=== PATIENT | male | born 1945 | race Caucasian/White ===

== ENCOUNTER 2019-04-18 02:57 | Inpatient (IN) | payer OTHER, BC ==
[~2019-04-18] VITALS: Ht 177.8 cm; Wt 124.7 kg
[2019-04-18 03:08] VITALS: Ht 177.8 cm; Wt 124.7 kg
[2019-04-18 03:56] LABS: PLATELET COUNT 146 x10^3mcL (130-400)
[2019-04-18 03:57] LABS: BASOPHIL % 0 % (0-2); RED CELL DISTRIBUTION WIDTH 15.5 % (11.5-14.5)
[2019-04-18 03:58] LABS: ALKALINE PHOSPHATASE 125 U/L (46-116); ALT/SGPT 59 U/L (16-63); AST/SGOT 36 U/L (15-37); BILIRUBIN TOTAL 1.38 mg/dL (0.20-1.00); CHLORIDE SERUM 101 mmol/L (98-107); CHOLESTEROL 148 mg/dL (<200); GLUCOSE SERUM 443 mg/dL (74-106); POTASSIUM SERUM 3.2 mmol/L (3.5-5.1); SODIUM SERUM 135 mmol/L (136-145)
[2019-04-18 04:01] LABS: ALBUMIN 3.1 g/dL (3.4-5.0); TOTAL PROTEIN, SERUM 5.8 g/dL (6.4-8.2)
[2019-04-18 06:12] LABS: UA SPECIFIC GRAVITY 1.015 (1.005-1.035); microscopic required? YES; urine erythrocyte 1+ (NEGATIVE)
[2019-04-18] MEDS ORDERED: CARVEDILOL ER40 MG PO (07:19)
[2019-04-18] MEDS ORDERED: QUINAPRIL20 MG PO (07:20)
[2019-04-18 10:07] VITALS: BP 150/86
[2019-04-18 11:31] VITALS: BP 156/90
[2019-04-18 11:58] LABS: CHOLESTEROL/HDL RATIO 5.3
[2019-04-18 16:20] VITALS: BP 138/84
[2019-04-18 20:03] VITALS: BP 149/80
[2019-04-19 05:45] VITALS: BP 137/86
[2019-04-19 06:55] LABS: BASOPHIL % 0.4 % (0-2); PLATELET COUNT 141 x10^3mcL (130-400)
[2019-04-19 07:26] LABS: CALCIUM 8.1 mg/dL (8.5-10.1); CARBON DIOXIDE 25.9 mmol/L (21-32); CHLORIDE SERUM 105 mmol/L (98-107); GLUCOSE SERUM 226 mg/dL (74-106); POTASSIUM SERUM 3.2 mmol/L (3.5-5.1); SODIUM SERUM 136 mmol/L (136-145)
[2019-04-19 07:48] LABS: RED CELL DISTRIBUTION WIDTH 16.3 % (11.5-14.5)
[2019-04-19 07:50] VITALS: BP 150/89
[2019-04-19 11:48] VITALS: BP 145/81
[2019-04-19 17:53] VITALS: BP 164/89
[2019-04-19 20:58] VITALS: BP 141/87
[2019-04-20 05:23] VITALS: BP 161/90
[2019-04-20 06:46] LABS: BASOPHIL % 0.4 % (0-2); PLATELET COUNT 140 x10^3mcL (130-400)
[2019-04-20 07:01] LABS: RED CELL DISTRIBUTION WIDTH 15.9 % (11.5-14.5)
[2019-04-20 07:02] LABS: CHLORIDE SERUM 103 mmol/L (98-107); CREATININE SERUM 0.9 mg/dL (0.7-1.3); GLUCOSE SERUM 286 mg/dL (74-106); POTASSIUM SERUM 3.8 mmol/L (3.5-5.1); SODIUM SERUM 137 mmol/L (136-145)
[2019-04-20 08:00] LABS: CARBON DIOXIDE 26.4 mmol/L (21-32)
[2019-04-20 10:00] VITALS: BP 146/87
[2019-04-20 16:30] VITALS: BP 152/89
[2019-04-20 20:55] VITALS: BP 156/81
[2019-04-21 06:04] VITALS: BP 149/95
[2019-04-21 06:14] LABS: BASOPHIL % 0.3 % (0-2); PLATELET COUNT 163 x10^3mcL (130-400)
[2019-04-21 06:29] LABS: CARBON DIOXIDE 28.8 mmol/L (21-32); CHLORIDE SERUM 101 mmol/L (98-107); GLUCOSE SERUM 237 mg/dL (74-106); POTASSIUM SERUM 3.2 mmol/L (3.5-5.1); SODIUM SERUM 137 mmol/L (136-145)
[2019-04-21 06:30] LABS: RED CELL DISTRIBUTION WIDTH 16.2 % (11.5-14.5)
[2019-04-21 07:45] VITALS: BP 156/54
[2019-04-21] MEDS ORDERED: GLUCOPHAGE500 MG PO (11:36)
[2019-04-21] MEDS ORDERED: ACCU-CHEK AVIV1 EACH MC (11:37)
[2019-04-21] MEDS ORDERED: LANTI SQ (11:38)
[2019-04-21] MEDS ORDERED: LEVOFLOXACIN500 M1 PO (11:39)
[2019-04-21 12:10] VITALS: BP 153/89
[2019-04-21 12:21] VITALS: BP 153/89
[2019-04-21] MEDS ORDERED: CILOS OU (13:06)
[2019-04-21] MEDS ORDERED: ACCU-CHEK GUID1 EAC1 MC (21:04)
[2019-04-22] MEDS ORDERED: TOUJEO300 U/ML SC (17:13)
== END 2019-04-21 14:49 | disposition home or self-care (01) | DRG 871 ==
LOC: ED 02:57 → MU 06:34 → DU 06:34 → MU 04-20 10:46
PROVIDERS: Emergency Medicine; ADMIT Family Medicine
DX: A41.9 Sepsis, unspecified organism (principal); G93.41 Metabolic encephalopathy; N39.0 Urinary tract infection, site not specified; B96.20 Unspecified Escherichia coli [E. coli] as the cause of diseases classified elsewhere; E11.65 Type 2 diabetes mellitus with hyperglycemia; I10 Essential (primary) hypertension; E87.6 Hypokalemia; E66.9 Obesity, unspecified; Z68.39 Body mass index [BMI] 39.0-39.9, adult; Z79.84 Long term (current) use of oral hypoglycemic drugs; Z95.0 Presence of cardiac pacemaker; Z86.73 Personal history of transient ischemic attack (TIA), and cerebral infarction without residual deficits; Z87.891 Personal history of nicotine dependence; Z79.899 Other long term (current) drug therapy
CPT/HCPCS: 82962; 83880; 87804; 97116-GP; 97530-GP; G0378; G0480; J1815; J1940; J2543; J3370; J3480; J7030; Q0092